=== PATIENT | male | born 2000 | race Caucasian/White ===

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

== ENCOUNTER → 2020-05-18 16:29 | Outpatient (CLI) | payer MEDICAID, SELFPAY | PROVIDERS: PCP Nurse Practitioner Family; Visit Provider Nurse Practitioner Family | DX: Z03.818 Encounter for observation for suspected exposure to other biological agents ruled out (principal) | CPT/HCPCS: U0003 ==

== ENCOUNTER 2020-10-19 22:42 | Emergency (ER) | payer BC, SELFPAY ==
[2020-10-19 22:53] VITALS: BP 148/88; PULSE 93; O2SAT 97
[2020-10-19 23:00] VITALS: BP 139/83; BP 148/88; PULSE 92; PULSE 97; RESP 16; TEMP 36.9; O2SAT 97; O2SAT 98; BMI 31.3
--- NOTE | 2020-10-20 00:09 | HMH.EDEAR ---
ED Disposition Clinical Impression: Otitis media Qualifiers: Otitis media type: unspecified Chronicity: acute Qualified Code(s): H66.90 - Otitis media, unspecified, unspecified ear Disposition: Home, Self-Care Condition on Discharge: Good Instructions: DI for Ear Pain-Adult Additional Instructions: use meds and see pcp for follow up Prescriptions: cephALEXin [cephALEXin 500mg capsule*] 500 mg PO TID #30 cap [facility]: [id number] predniSONE [Prednisone 20mg Tab] 20 mg PO BID #10 tab Transmission Status: [id number] Referrals: Mason Sargent APRN [Primary Care Provider] - - Critical Care Critical Care Time: No Attestation: On 10/19/20, the high probability of a clinically significant, sudden or life threatening deterioration of the following system(s) required my full and direct attention, intervention and personal management. The time I documented below is in addition to time spent performing reported procedures but includes the following listed in this critical care notation. Medical Decision Making - Medical Records Medical records reviewed: Yes: I reviewed the patient's medical records. - Nito Inquiry Pt receiving controlled substance: No Vital Signs: 10/19/20 22:53 10/19/20 23:00 Temperature 98.5 F Temperature Source Oral Pulse Rate 93 H 92 H Pulse Rate [Right] 97 H Respiratory Rate 16 Blood Pressure 148/88 H 139/83 Blood Pressure [Right Arm] 148/88 H Blood Pressure Mean 100 95 Blood Pressure Mean [Right Arm] 108 Blood Pressure Source [Right Arm] Automatic Cuff 02 Sat by Pulse Oximetry 97 98 Oxygen Delivery Method Room Air Room Air - Lab Data Lab results reviewed: Yes: I reviewed the patient's lab results. Orders (Tests/Meds): ED MEDICATIONS Discontinued Medications Generic Name Dose Route Start Last Admin Trade Name Freq PRN Reason Stop Dose Admin Dexamethasone Sodium Phosphate 8 mg 10/19/20 23:20 Dexamethasone 4mg/Ml 1ml Vial IM 10/19/20 23:21 ONCE ONE Ketorolac Tromethamine 60 mg 10/19/20 23:20 Ketorolac 60mg/2ml Vial IM 10/19/20 23:21 ONCE ONE Ear HPI - General Chief complaint: Ear Stated complaint: pain in right jaw hurts near ear Time Seen by Provider: 10/20/20 00:00 Mode of Arrival: Ambulatory Source of Information: Patient, Medical Record Limitations: No Limitations Description of Symptoms (Recalled from ER Triage Doc. by RN): Pt reports that his right ear began hurting on Sunday (10/17). Today he started to have pain infront of pinna. Pt denies any fevers, chills, N/V/D, or SOA. Pt denies any sore throat, cough, or nasal drainage. - History of Present Illness HPI Narrative: rt ear pain over the last few days w/o rash or trauma and no tinnitus or hearing loss - no d/c MD Complaint: ear pain Location: right ear Duration: constant Severity: moderate Discharge from ear: no Treatment prior to arrival: none - Related Data Previous Rx's Medication Instructions Recorded cephALEXin [cephALEXin 500mg 500 mg PO TID #30 cap 10/20/20 capsule*] predniSONE [Prednisone 20mg 20 mg PO BID #10 tab 10/20/20 Tab] Allergies Allergy/AdvReac Type Severity Reaction Status Date / Time No Known Allergies Allergy Verified 09/15/20 10:47 [facility] History - Hepatitis A Screen Drug use history?: No High risk sexual behaviors?: No History of sexually transmitted infection?: No Currently employed?: No Childcare worker?: No Do you have indoor plumbing?: Yes Do you have electricity?: Yes Attestation statement:: This patient has been screened for Hepatitis A risk factors. I have reviewed the patient's past medical history: Yes Medical History: Reports:: Asthma Laterality Cases: Bilateral: Tonsillectomy Comment: eyelid surgery - Social History Smoking Status: Never smoker Alcohol Intake: never Substance Use Type: denies use Occupational Status: student H
[2020-10-20 00:27] VITALS: BP 124/81; PULSE 91; RESP 20; TEMP 36.7; O2SAT 98
== END 2020-10-20 00:29 | disposition home or self-care (01) ==
PROVIDERS: Emergency Provider Emergency Medicine; PCP Nurse Practitioner Family
DX: H66.91 Otitis media, unspecified, right ear (principal); J45.909 Unspecified asthma, uncomplicated
CPT/HCPCS: 96372; 99281

== ENCOUNTER → 2021-04-13 09:00 | Outpatient (CLI) | payer BC, SELFPAY | PROVIDERS: PCP Nurse Practitioner Family; Visit Provider Nurse Practitioner | DX: Z20.822 Contact with and (suspected) exposure to COVID-19 (principal); U07.1 COVID-19 | CPT/HCPCS: C9803; U0003; U0005 ==

== ENCOUNTER 2023-03-09 15:30 | Emergency (ER) | payer SELFPAY ==
[2023-03-09 15:31] VITALS: BP 118/60; PULSE 71; RESP 18; TEMP 37.1; O2SAT 96; BMI 26.4
--- NOTE | 2023-03-09 15:48 | EXP.UTC ---
Discharge Plan Disposition Patient Disposition: Home, Self-Care Condition: Good Prescriptions Prescriptions: New prednisone 10 mg tablet 10 mg PO BID 5 Days Qty: 10 0RF gentamicin 0.3 % drops 1 drp Ear-Right Q4H 7 Days Qty: 5 0RF Referrals Follow up/Referrals: Provider,Referral, MD [Primary Care Provider] - See instructions Activity Restrictions/Add. Instructions Additional Instructions/Restrictions: Use the eye drops as directed. Strict hand washing in the house hold, because conjunctivitis is very contagious. Follow up with your regular doctor. GO TO THE ER FOR ANY WORSENING SYMPTOMS OR CONCERNS Clinical Impressions Clinical Impression: Conjunctivitis of right eye Instructions Patient Instructions: How to Instill Eye Drops, DI for Conjunctivitis Discharge ED Provider: Juliano Simon [facility] [place] HPI General Stated complaint: right eye redness Time Seen by Provider: 03/09/23 15:48 History of Present Illness Provider Complaint: He states that for the past 2 days he has had right eye redness and irritation. He denies any foreign body or injury to the eye. He states that his vision is normal in the eye, other than the swelling around it makes it kind of hard to see at times. Related Data Previous Rx's Medication Instructions Recorded gentamicin 0.3 % eye drops 1 drp Ear-Right Q4H 7 days #5 mL 03/09/23 prednisone 10 mg tablet 10 mg PO BID 5 days #10 tabs 03/09/23 Allergies Allergy/AdvReac Type Severity Reaction Status Date / Time No Known Allergies Allergy Verified 03/09/23 15:48 [facility] Disclaimer: The information contained in this section may have been updated after the patient was seen, as this information can be updated by other users. Social History Smoking Status: Never smoker alcohol intake: never substance use type: denies use current occupational status: student Travel in the last 8 weeks: None household members: family housing: house ROS Obtained: Yes All systems reviewed & no additional complaints except as documented Constitutional Constitutional: Denies chills and Denies fever(s) Eyes Eyes: Reports as per HPI and Reports eye discharge ENT Ears, Nose, Mouth, and Throat: Denies dizziness, Denies otalgia and Denies sore throat Cardiovascular Cardiovascular: Denies chest pain Respiratory Respiratory: Denies shortness of breath, Denies chest congestion, Denies cough, Denies stridor and Denies wheezing Gastrointestinal Gastrointestingal: Denies nausea or vomiting Musculoskeletal Musculoskeletal: Reports system reviewed and no additional complaints, except as documented and Denies arthralgias Integumentary/Breasts Skin/Breast: Denies rash Neurologic Neurologic: Denies dizziness and Denies paresthesias Allergic/Immunologic Allergic/Immunologic: Denies wheezing Physical Exam General General appearance: alert and in no apparent distress Head Head exam: atraumatic, normocephalic and normal inspection Eye Eye exam: Present PERRL and EOMI Expanded Eye Exam Eyelids: left: normal inspection and right: erythema Pupils: Left: size (3), Right: size (3) and Bilateral: regular, round and reactive Sclera/Conjunctival: left: normal inspection and right: injection and exudate ENT ENT exam: Present normal exam, normal oropharynx, mucous membranes moist, TM's normal bilaterally and normal external ear exam Neck Neck exam: Present normal inspection, full ROM and trachea midline; Absent meningismus or lymphadenopathy Chest Chest inspection: Present normal inspection and symmetric chest wall rise; Absent tenderness Respiratory Respiratory exam: Present normal lung sounds bilaterally; Absent respiratory distress Cardiovascular Cardiovascular exam: Present regular rate and normal rhythm; Absent JVD Abdominal Exam Abdominal exam: Present soft and normal bowel sounds; Absent distention, tenderness or guarding Extremities
[2023-03-09 16:46] VITALS: BP 118/60; PULSE 71; RESP 18; TEMP 37.1; O2SAT 96
== END 2023-03-09 16:46 | disposition home or self-care (01) ==
PROVIDERS: Emergency Provider Nurse Practitioner Family
DX: H10.31 Unspecified acute conjunctivitis, right eye (principal)
CPT/HCPCS: 99204; 99212; G0463

== ENCOUNTER 2023-07-31 11:38 | Emergency (ER) | payer SELFPAY ==
[2023-07-31] VITALS (7 sets, daily range): BP systolic 115–142; BP diastolic 68–87; PULSE 59–78; RESP 17–18; TEMP 36.7–36.8; O2SAT 96–99; BMI 24.3
[2023-07-31] MEDS: METHOCARBAMOL 500MG TABLET 500 MG PO (13:13)
--- NOTE | 2023-08-01 19:10 | ED_ITS ---
Discharge Plan Disposition Patient Disposition: Home, Self-Care Condition: Good Prescriptions Prescriptions: New methocarbamol 750 mg tablet 750 mg PO Q8H Qty: 90 0RF methylprednisolone 4 mg tablets,dose pack 4 mg PO DAILY 5 Days Qty: 5 0RF No Action prednisone 10 mg tablet 10 mg PO BID 5 Days Qty: 10 0RF gentamicin 0.3 % drops 1 drp Ear-Right Q4H 7 Days Qty: 5 0RF Referrals Follow up/Referrals: Mason Sargent APRN [Primary Care Provider] - See instructions Activity Restrictions/Add. Instructions Additional Instructions/Restrictions: Please take the muscle relaxer and the steroids for your back pain. Continue ibuprofen and Tylenol although please do not exceed recommended daily allowances of these medications. Please return with any new or worsening symptoms. Clinical Impressions Clinical Impression: Lower back pain Qualifiers: Chronicity: acute Back pain laterality: midline Sciatica presence: without sciatica Qualified Code(s): M54.50 - Low back pain, unspecified Instructions Patient Instructions: DI for Low Back Pain Discharge ED Provider: [facility] General Chief complaint: Back Pain/Injury Stated complaint: pain in lower and middle back Time Seen by Provider: 07/31/23 12:05 Mode of Arrival: Family Vehicle Source of Information: Patient Limitations: No Limitations Description of Symptoms (Recalled from ER Triage Doc. by RN): Pt c/o mid to lower back pain. States he has previously seen a Chiropractor who took xrays and told him he had DDD to his spine. Pt reports he has taken Way too much aspirin and Ibuprofen . Reports today he has taken 486mg of Aspirin and 1,200mg of Advil thus far this morning @ 0800.Pt was at work and just couldn't take the pain anymore . He has not seen any Neuro or provider for this issue. Denies any parathesia, peripheral numbness, or incontinence. Denies any saddle numbness. Denies any recent falls, trauma, or injury. History of Present Illness HPI narrative: Patient reports thoracic and lumbar back pain that has been ongoing for multiple months however intermittent in course and present for the past 2 weeks. He denies any numbness or tingling, denies any saddle anesthesia, denies any fever or chills. Denies any recent trauma. He states his profession requires frequent lifting which can occasionally exacerbate the symptoms. He denies any recreational drug use, again denies any IV drug use. The character and location of pain is identical to previous exacerbations which have resolved spontaneously in the past. Denies any other symptoms at this time. Previous therapies include Tylenol and ibuprofen. He states he has been prescribed steroids in the past with mild efficacy. He does see a chiropractor for his symptoms however no cervical manipulations. He has had imaging at the chiropractor which reveal d egenerative disc disease. Please note that above description of symptoms, in this electronic medical record under categorization of recalled from ER triage doctor by RN are reflective of an initial nursing assessment, however, is not reflective of my full history and physical exam that was personally taken and clarified. Consequentially, this preceding description of symptoms, which may include the patient's categorized chief complaint in the EMR, do not reflect my personal clinical impression, and the ultimate description of history of present illness and patient stated complaints should be deferred to this section of the note. Unless stated otherwise or congruent with this section of the note, additional signs, symptoms, or incongruence should be interpreted as inaccurate with my cl inical impression. Related Data Previous Rx's Medication Instructions Recorded gentamicin 0.3 % eye drops 1 drp Ear-Right Q4H 7 days #5 mL 03/09/23 prednisone 10 mg tablet 10 mg PO BID 5 days #10 tabs 03/09/23 methocarbamol 750 mg tablet 750 mg PO Q8H #90 tabs 07/31/23 methylprednisolone 4 mg tablets in 4 mg PO DAILY 5 days #5 tabs 07/31/23 a dose pack Allergies Allergy/AdvReac Type Severity Reaction Status Date / Time No Known Allergies Allergy Verified 03/09/23 15:48 [facility] Disclaimer: The information contained in this section may have been updated after the patient was seen, as this information can be updated by other users. Social History Smoking Status: Current every day smoker alcohol intake: never substance use type: denies use current occupational status: student Travel in the last 8 weeks: None household members: family housing: house ROS Obtained: Yes Systems reviewed as appropriate & no additional complaints except as documented As per HPI Physical Exam General General appearance: alert and in no apparent distress Head Head exam: atraumatic and normocephalic Eye Eye exam: Present normal appearance Neck Neck exam: Present normal inspection Chest Chest inspection: Present normal inspection and symmetric chest wall rise Respiratory Respiratory exam: Present normal lung sounds bilaterally; Absent respiratory distress Cardiovascular Cardiovascular exam: Present regular rate and normal rhythm Abdominal Exam Abdominal exam: Present soft Back Exam Back exam: Present normal inspection (Midline lumbar, lower thoracic midline spinal and paraspinal tenderness to palpation. Reflexes normal, no point tenderness. Distally neurovascularly intact.) Neurological Exam Neurological exam: Present alert and oriented X3 Psychiatric Psychiatric exam: Present normal affect and normal mood Skin Skin exam: Present warm and dry Medical Decision Making Medical Records Medical records reviewed: Yes I reviewed the patient's medical records. Nito Inquiry Pt receiving controlled substance: No Vital Signs: 07/31/23 11:39 07/31/23 11:43 07/31/23 12:00 Temperature 98.1 F Temperature Source Oral Pulse Rate 75 65 Pulse Rate [Right] 78 Respiratory Rate 17 Blood Pressure 142/87 H 122/79 Blood Pressure [Right Arm] 142/87 H Blood Pressure Mean [Right Arm] 105 Blood Pressure Source [Right Arm] Automatic Cuff 02 Sat by Pulse Oximetry 97 99 98 Oxygen Delivery Method Room Air Room Air Room Air 07/31/23 12:30 07/31/23 13:00 07/31/23 13:30 Temperature Temperature Source Pulse Rate 66 65 65 Pulse Rate [Right] Respiratory Rate Blood Pressure 135/76 135/79 115/68 Blood Pressure [Right Arm] Blood Pressure Mean [Right Arm] Blood Pressure Source [Right Arm] 02 Sat by Pulse Oximetry 98 96 99 Oxygen Delivery Method Room Air Room Air Room Air 07/31/23 14:11 Temperature 98.2 F Temperature Source Pulse Rate 59 L Pulse Rate [Right] Respiratory Rate 18 Blood Pressure 115/68 Blood Pressure [Right Arm] Blood Pressure Mean [Right Arm] Blood Pressure Source [Right Arm] 02 Sat by Pulse Oximetry Oxygen Delivery Method Orders (Tests/Meds): ED MEDICATIONS Discontinued Medications Generic Name Dose Route Start Last Admin Trade Name Freq PRN Reason Stop Dose Admin Methocarbamol 500 mg 07/31/23 12:37 07/31/23 13:13 Methocarbamol 500mg Tablet PO 07/31/23 12:38 500 mg ONCE STA Administration Medical Decision Narrative: Patient with history and exam per above presenting for evaluation of back pain Diagnoses considered include mechanical low back pain, muscle sprain,. There is no clinical evidence to suggest at this time cauda equina syndrome, radiculopathy, fracture, patient denies any risk factors for osteomyelitis, is generally well-appearing on my exam, no point tenderness, and identical presenting characteristics to previous episodes that have resolved spontaneously. I suspect a component of overuse from his line of work. He has taken above the recommended daily allowance of Tylenol, ibuprofen however his asymptomatic at this time and has not taken toxic dose to warrant further workup at this time ED workup and treatment included: Methocarbamol 500 mg once My clinical impression at this time is most consistent with mechanical low back pain I discussed my clinical impression with patient and answered all questions. At this time, the evidence for any other entities in the differential is insufficient to warrant any further testing or ED observation. This was explained to the patient. The patient was advised that persistent or worsening symptoms require further evaluation. I confirmed the patient's understanding of this discussion. Critical Care Critical Care Time Critical Care Time: No
== END 2023-07-31 14:14 | disposition home or self-care (01) ==
PROVIDERS: Emergency Provider Emergency Medicine; PCP Nurse Practitioner Family
DX: F17.200 Nicotine dependence, unspecified, uncomplicated (principal); M54.50 Low back pain, unspecified
CPT/HCPCS: 99283